=== PATIENT | female | born 1995 | race Caucasian/White ===

== ENCOUNTER 2022-10-24 12:52 | Emergency (ER) | payer OTHER ==
[2022-10-24 13:23] VITALS: BP 149/102
--- NOTE | 2022-10-24 14:29 | ED Physician Documentation ---
PD HPI LOWER EXT INJURY - Stated complaint Stated Complaint: R FT DISCOLERED,COLD - Chief complaint Chief Complaint: Ext Problem - History obtained from History obtained from: Patient - History of Present Illness PD HPI LOW EXT INJURY LOCATION: Right, Lower leg Worsened by: Moving, Palpating Associated symptoms: Discolored Contributing factors: No: Anticoagulated, Prior ortho surgery, Prosthetic joint, Work related, Other - Additional information Additional information: This is a 27-year-old female with no significant past medical history who is currently being evaluated by her PCP for a possible right leg stress fracture. She has been on crutches and not ambulating on the leg per instructions for several days. She denies any acute injury but does a lot of sports and skiing and thinks in the suspect she may have a stress fracture. She is awaiting an outpatient MRI. Today when she woke up, she noted that her right leg was quite cool to touch, so she thought more so than the left leg and also was purple in color. This was in a dependent position. It did improve when she elevated it. She does have some mild calf pain, but denies any prolonged immobility, surgeries, or history of DVT or PE. She Has a Mirena IUD. She does have a history of cool extremities but never discolored to this degree. Review of Systems Constitutional: reports: Reviewed and negative Cardiac: reports: Reviewed and negative Respiratory: reports: Reviewed and negative GI: reports: Reviewed and negative Skin: reports: Other (Purplish discoloration to the right leg) Musculoskeletal: reports: Extremity pain Neurologic: reports: Reviewed and negative PD PAST MEDICAL HISTORY - Past Medical History Past Medical History: No - Allergies Allergies/Adverse Reactions: Allergies Allergy/AdvReac Type Severity Reaction Status Date / Time Sulfa (Sulfonamide Allergy Hives Verified 10/24/22 13:23 Antibiotics) PD ED PE NORMAL - Vitals Vital signs reviewed: Yes - General General: Alert and oriented X 3, No acute distress, Well developed/nourished - HEENT HEENT: Atraumatic, Pharynx benign - Neck Neck: Supple, no meningeal sign, No JVD - Cardiac Cardiac: RRR, No murmur, No gallop, No rub - Respiratory Respiratory: No respiratory distress, Clear bilaterally - Derm Derm: Normal color, Warm and dry, No rash - Extremities Extremities: No deformity, Normal ROM s pain, Other (Mild right calf tenderness without any cords, no erythema. Both feet are cool to the touch however posterior tib and dorsalis pedis pulses are palpable bilaterally. She has slightly sluggish cap refill bilaterally but not more significant on the right. No obvious deformity of the leg, patient is ) - Neuro Neuro: Alert and oriented X 3 Eye Opening: Spontaneous Motor: Obeys Commands Verbal: Oriented GCS Score: 15 - Psych Psych: Normal mood, Normal affect Results - Vitals Vitals: Vital Signs - 24 hr 10/24/22 13:17 Temperature 36.9 C Heart Rate 101 H Respiratory 16 Rate Blood Pressure 149/102 H O2 Saturation 100 Oxygen O2 Source Room air PD Medical Decision Making - ED course Complexity details: reviewed results, re-evaluated patient, considered differential, d/w patient ED course: This is a 27-year-old female with no significant past medical history who presented with discoloration and cool to touch right leg. She is currently being evaluated for possible stress fracture in that leg with ongoing tibia pain but apparently negative x-ray, she is awaiting outpatient MRI. She denies any new injuries but had discoloration of the right leg this morning. No substantial increase in pain, and no pain when it is in a dependent position. She does have some mild right calf pain, no history of DVT. On arrival here, the patient's leg is normal colored, she has slightly sluggish cap refill right about 2 to 3 seconds but this is bilateral. Both her feet are cool to the touch, on the right does not seem any more so than the left. Unable to palpable date pedal pulses dorsalis pedis and posterior tib bilaterally. We did obtain an ultrasound to rule out DVT and this was negative. I do not think any arterial studies are indicated at this time as patient's seems to have good pulses and coloration at this time. Advised her to keep it elevated whenever possible and continue to monitor, if she has sudden increase in pain, persistent discoloration, Paresthesia or other new concerns, return to the ER otherwise she will follow-up with her primary doctor for continued monitoring of this leg. Departure - Departure Disposition: 01 Home, Self Care Clinical Impression: Pain in extremity Qualifiers: Extremity pain location: lower leg Laterality: right Qualified Code(s): M79.661 - Pain in right lower leg Condition: Good Comments: You presented with discoloration to the right foot today. Here, the pulses are strong and the color is normal, though the feet are both somewhat cool to the touch. An US revealed no blood clots or other abnormalities. Please keep elevated and continue to monitor. Follow up with your primary provider/ortho in regards to your possible stress fracture. Discharge Date/Time: 10/24/22 17:15
--- NOTE | 2022-10-24 17:18 | Ultrasound Report ---
PROCEDURE: Duplex Ext Veins Right INDICATIONS: calf pain r/o dvt TECHNIQUE: Real-time imaging, as well as color and pulse Doppler interrogation, were performed of the lower extr emity deep veins from the inguinal ligament to the popliteal fossa. COMPARISON: None. FINDINGS: The deep veins are normally compressible, and free of intraluminal thrombus. Color and pu lse Doppler demonstrate normal phasic intraluminal flow. There is normal augmentation response to di stal compression maneuver. IMPRESSION: No DVT in the right lower extremity. Reviewed by: Purvi Gill MD on 10/24/2022 5:17 PM PST Approved by: Purvi Gill MD on 10/24/2022 5:17 PM PST Station ID: [id number]
== END 2022-10-24 17:15 | disposition home or self-care (01) ==
LOC: ED 12:52
DX: M79.661 Pain in right lower leg (principal)
CPT/HCPCS: 99283; 99284

== ENCOUNTER 2023-02-14 09:15 | Outpatient (CLI) | payer OTHER | END 2023-02-14 09:30 | disposition home or self-care (01) | LOC: LAB.N 09:15 | PROVIDERS: ATTEND Physician Assistant | DX: R30.0 Dysuria (principal) | CPT/HCPCS: 87086; 87181 ==